=== PATIENT | male | born 1965 | race American Indian/Alaskan Native ===

== ENCOUNTER 2022-02-17 12:36 | Outpatient (CLI) | payer MEDICAID ==
--- NOTE | 2022-02-17 15:52 | Cat Scan Report ---
CT ABDOMEN AND PELVIS WITHOUT CONTRAST HISTORY: VENTRAL HERNIA WITHOUT OBSTRUCTION OR GANGRENE COMPARISON: None. TECHNIQUE: Axial CT images were obtained through the abdomen and pelvis without IV contrast. Sagittal and coronal reformatted images. All CT scans at this location are performed using CT dose reduction for ALARA by means of automated exposure control. FINDINGS: CT ABDOMEN: Lung Bases: Clear. Liver: No significant abnormality. Biliary: No significant abnormality. Spleen: No significant abnormality. Unenlarged. Pancreas: No significant abnormality. Adrenals: No significant abnormality. Kidneys: No significant abnormality. Lymphatics: No lymphadenopathy. Vasculature: No significant abnormality. Bowel/Peritoneum: No significant abnormality. No free air. No free fluid. Appendectomy changes are morales spected. CT PELVIS: : No significant abnormality. Osseous Structures: Mild thoracolumbar spondylosis. Previous right hip replacement appears intact. Additional Findings: There is a supraumbilical ventral wall defect measuring 2.9 cm just to the right of midline on image 92. The hernia sac contains mesenteric fat and measures 7.9 cm in diameter. Tiny umbilical hernia containing fat is also identified. IMPRESSION: Fat-containing ventral wall hernias as described. Signer Name: Jus Palacios Jr, MD Signed: 02/17/2022 3:48 PM Workstation Name: [id number]
== END 2022-02-17 12:37 | disposition home or self-care (01) ==
LOC: CT 12:36
PROVIDERS: ATTEND Surgery
DX: K43.9 Ventral hernia without obstruction or gangrene (principal); M47.815 Spondylosis without myelopathy or radiculopathy, thoracolumbar region
CPT/HCPCS: 74176